=== PATIENT | female | born 1970 ===

== ENCOUNTER 2022-06-09 08:49 | Emergency (ER) | payer MEDICAID ==
[2022-06-09] MEDS ORDERED: amLODIPine 5 MG Tab PO ONE (09:06)
[2022-06-09] MEDS ORDERED: hydrALAZINE 25 MG Tab PO ONE (09:10)
[2022-06-09] MEDS ORDERED: cloNIDine 0.1 MG Tab PO ONE (10:21)
== END 2022-06-09 11:17 | disposition home or self-care (01) ==
LOC: DL.ED 08:49
DX: I10 Essential (primary) hypertension (principal)
CPT/HCPCS: 93005; 93010; 99283; A9270-GY